=== PATIENT | female | born 1935 | race Caucasian/White ===

== ENCOUNTER 2017-07-14 11:00 | Emergency (ER) | payer OTHER ==
[~2017-07-14] VITALS: Ht 154.9 cm; Wt 59.7 kg
[~2017-07-14 11:00] MED LIST: ACET-1256 PO; AMR2 PO; ASPEC81 PO; ATOR10TA88 PO; GABA600T PO; GEMF600T3 PO; GLC500 PO; IMD/2 PO; LOSA100T26 PO; MULT-506 PO; PRLSR20 PO; PSYL0.524 PO; RXC5 PO
[2017-07-14 11:12] VITALS: TEMP 36.8; Ht 154.9 cm; Wt 59.7 kg
[2017-07-14] MEDS ORDERED: SODIUM CHLORIDE 0.9% 1000ML 1,000 ML IV STA (11:44)
[2017-07-14 11:57] LABS: BASO % 0.5 %; BASO ABS # 0.04 K/uL (0-0.2); COMPLETE YES; EOS % 5.6 %; HEMATOCRIT 34.2 % (37-47); IG% 0.5 %; LYMPH % 29.1 %; LYMPH ABS # 2.37 K/uL (1.2-3.4); MEAN CELL VOLUME 86.8 fL (80-100); MEAN CORPUSCULAR HEMOGLOBIN 28.7 pg (25-34); MONO % 5.5 %; NEUT % 58.8 %; PLATELET COUNT 410 K/uL (130-400); RED BLOOD COUNT 3.94 M/uL (4.2-5.4); WHITE BLOOD COUNT 8.15 K/uL (4.8-10.8)
[2017-07-14 12:19] LABS: ALT/SGPT 21 U/L (12-78); BLOOD UREA NITROGEN 21 mg/dl (7-18); BUN/CREATININE RATIO 24.4 (10-20); CALCIUM 9.6 mg/dl (8.5-10.1); CARBON DIOXIDE 27 mmol/L (21-32); CHLORIDE 102 mmol/L (98-107); CREATININE 0.87 mg/dl (0.60-1.20); GLUCOSE 159 mg/dl (70-99); POTASSIUM 4.3 mmol/L (3.5-5.1); SODIUM 137 mmol/L (136-145)
[2017-07-14 12:22] LABS: ALKALINE PHOSPHATASE 68 U/L (45-117); AST/SGOT 24 U/L (15-37)
[2017-07-14 12:23] LABS: URINE APPEARANCE CLEAR (CLEAR); URINE BILIRUBIN NEG (NEG); URINE COLOR YELLOW; URINE EPITHELIAL CELL AUTO 20-30 /lpf (0-5); URINE NITRITE NEG (NEG); URINE PH 6.5 (4.5-7.5); URINE SPECIFIC GRAVITY 1.017 (1.000-1.030); UROBILINOGEN NEG (NEG)
[2017-07-14] MEDS ORDERED: ASPI81TA28 PO (12:51)
[2017-07-14] MEDS ORDERED: METF-384 PO (12:51)
[2017-07-14] MEDS ORDERED: GLIM1TAB PO (12:51)
[2017-07-14 12:54] LABS: MANUAL MICROSCOPIC REQUIRED? NO; REVIEW REQ? NO
[2017-07-14] MEDS ORDERED: ONDANSETRON INJ 2 MG/ML 2 ML VIAL IV STA (13:57)
--- NOTE | 2017-07-14 14:06 | DIAGNOSTIC IMAGING REPORT ---
ABDOMEN 2VIEW W/PA CHEST RTN CLINICAL HISTORY: Abdominal pain, nausea, vomiting, diarrhea COMPARISON STUDY: Chest x-ray dated 08/08/2016 FINDINGS: The heart is normal in size. There is no failure. There is no focal pulmonary consolidation. There are no pleural effusions. There is no pneumomediastinum. There are postsurgical changes of thoracoabdominal spinal rodding. There are bilateral sacroiliac bolts. There are no abnormally dilated loops of large or small bowel. There are no transition zones indicate bowel obstruction. Multiple pelvic basin calcifications likely represent phleboliths. IMPRESSION: No evidence of bowel obstruction. No evidence of free air. Electronically signed by: Harpreet Preston M.D. 07/14/2017 2:05 PM Dictated Date/Time: 07/14/2017 2:04 PM
[2017-07-14 14:16] VITALS: BP 160/81; PULSE 85; O2SAT 96
--- NOTE | 2017-07-14 15:06 | EMERGENCY ROOM VISIT NOTE ---
ED Visit Note First contact with patient: 11:30 The patient was seen and examined with Alonzo Sheridan PA-C. I agree with the history, physical and findings. Please see the note for disposition and details.
--- NOTE | 2017-07-15 11:40 | EMERGENCY ROOM VISIT NOTE ---
ED Visit Note First contact with patient: 11:30 Chief Complaint: I've been having a lot of of diarrhea. History of Present Illness: Ms. Olivier is an 81-year-old white female who ambulates into the ED accompanied by her daughter and complaining of diarrhea. Historically patient reports she's had multiple previous episodes of diarrhea and has seen a computerized machine fabric cutter who has prescribed Imodium and this has been controlling her diarrhea for many years. Patient reports she started having an upper respiratory tract infection approximately 2 weeks ago. On Saturday she was seen at her primary care providers and was prescribed amoxicillin for her symptoms. Patient reports she took one dose and then starting on Saturday, 5 days ago, she started having diarrhea. She reports she's been having 5-6 episodes of watery stools that has a small amount of formed stool. She has used her Imodium without relief of her diarrhea. Associated with her diarrhea she reports she has some mild cramping pain before she has the episode of diarrhea that resolves when she is done and some mild lightheadedness; she does report this lightheadedness has been ongoing since her back surgery and does not feel it is anymore intense since the diarrhea started. She has stopped the antibiotic 2 days ago but continues to have the diarrhea. She has not identified any aggravating or alleviating factors related to the diarrhea. She has tried additional episodes Imodium without relief of her diarrhea. She denies chest pain, shortness of breath, fevers, chills, skin eruptions, skin color changes, abdominal pain, nausea, vomiting, bloody stools, black/ tarry stools, back/flank pain, urinary symptoms, hematuria, and recent foreign travel. Review of Systems: As noted above in history of present illness. All body systems were reviewed and found to be negative as noted above. Past Medical History: Diabetes, hypertension, GERD, unspecified back surgery, endarterectomy, cholecystectomy, unspecified knee replacement and hysterectomy. Current Medications: Prilosec, vitamins, Lopid, Neurontin, Metamucil, Tylenol, Lipitor, Imodium, Hyzaar, Glucophage, aspirin, Amaryl. Allergies to Medications: Diazepam, propoxyphene, meperidine. Social History: Patient is not employed; she lives with her and feels safe in her home environment; she denies tobacco and alcohol use. Physical Examination: Vital Signs: Date Time Temp Pulse Resp B/P (MAP) Pulse Ox O2 Delivery O2 Flow Rate FiO2 07/14/17 14:16 85 18 160/81 96 Room Air 07/14/17 13:14 74 18 142/86 96 Room Air 07/14/17 12:20 76 07/14/17 11:55 81 163/84 164/75 147/68 07/14/17 11:12 36.8 77 20 145/84 96 Room Air GENERAL: 81-year-old female in mild distress due to symptoms, nontoxic-appearing , afebrile and hemodynamically stable. NEUROLOGICAL: Awake, alert and oriented to person, place and time. Answering questions appropriately and following commands. Normal gait. Good hand eye coordination. SKIN: Warm, dry and pink. No soft tissue eruptions or trauma noted. HEENT: Atraumatic and normocephalic. PERRLA. Sclera white and conjunctiva pink. No drainage from naris. Oral cavity moist and pink. Pharynx is nonerythematous or edematous. Speech normal. No lymphadenopathy. Trachea midline. No jugular venous distention. BACK: No tenderness over the bony spine. No CVA tenderness. THORAX: Lungs sounds are clear to auscultation and equal bilaterally with symmetrical chest wall. No wheezing, rales or rhonchi. No crepitus, tenderness , subcutaneous air or deformities noted. HEART: Regular rate and rhythm. No gallops, rubs or murmurs are appreciated. ABDOMEN: Flat, soft and nontender. Positive bowel sounds in all quadrants. No guarding, rigidity or organomegaly. EXTREMITIES: Moves all extremities well on command and with purpose. All distal neurovascular statuses are intact and equal bilaterally. No calf tenderness or cords. ED Course: Patient is assessed as noted above. Patient's medication list was reviewed. Laboratory Testing: Test 07/14/17 11:45 07/14/17 12:00 Range/Units White Blood Count 8.15 4.8-10.8 K/uL Red Blood Count 3.94 4.2-5.4 M/uL Hemoglobin 11.3 12.0-16.0 g/dL Hematocrit 34.2 37-47 % Mean Corpuscular Volume 86.8 80-100 fL Mean Corpuscular Hemoglobin 28.7 25-34 pg Mean Corpuscular Hemoglobin Concent 33.0 32-36 g/dl Platelet Count 410 130-400 K/uL Mean Platelet Volume 9.0 7.4-10.4 fL Neutrophils (%) (Auto) 58.8 % Lymphocytes (%) (Auto) 29.1 % Monocytes (%) (Auto) 5.5 % Eosinophils (%) (Auto) 5.6 % Basophils (%) (Auto) 0.5 % Neutrophils # (Auto) 4.79 1.4-6.5 K/uL Lymphocytes # (Auto) 2.37 1.2-3.4 K/uL Monocytes # (Auto) 0.45 0.11-0.59 K/uL Eosinophils # (Auto) 0.46 0-0.5 K/uL Basophils # (Auto) 0.04 0-0.2 K/uL RDW Standard Deviation 39.7 36.4-46.3 fL RDW Coefficient of Variation 12.5 11.5-14.5 % Immature Granulocyte % (Auto) 0.5 % Immature Granulocyte # (Auto) 0.04 0.00-0.02 K/uL Sodium Level 137 136-145 mmol/L Potassium Level 4.3 3.5-5.1 mmol/L Chloride Level 102 98-107 mmol/L Carbon Dioxide Level 27 21-32 mmol/L Anion Gap 8.0 3-11 mmol/L Blood Urea Nitrogen 21 7-18 mg/dl Creatinine 0.87 0.60-1.20 mg/dl Est Creatinine Clear Calc Drug Dose 41.3 ml/min Estimated GFR () 71.9 Estimated GFR (Non- 62.0 BUN/Creatinine Ratio 24.4 10-20 Random Glucose 159 70-99 mg/dl Calcium Level 9.6 8.5-10.1 mg/dl Total Bilirubin 0.2 0.2-1 mg/dl Direct Bilirubin < 0.1 0-0.2 mg/dl Aspartate Amino Transf (AST/SGOT) 24 15-37 U/L Alanine Aminotransferase (ALT/SGPT) 21 12-78 U/L Alkaline Phosphatase 68 45-117 U/L Total Protein 7.8 6.4-8.2 gm/dl Albumin 3.6 3.4-5.0 gm/dl Lipase 129 73-393 U/L Urine Color YELLOW Urine Appearance CLEAR CLEAR Urine pH 6.5 4.5-7.5 Urine Specific [place] 1.017 1.000-1.030 Urine Protein NEG NEG Urine Glucose (UA) NEG NEG Urine Ketones NEG NEG Urine Occult Blood NEG NEG Urine Nitrite NEG NEG Urine Bilirubin NEG NEG Urine Urobilinogen NEG NEG Urine Leukocyte Esterase MODERATE NEG Urine WBC (Auto) 5-10 0-5 /hpf Urine RBC (Auto) 0-4 0-4 /hpf Urine Hyaline Casts (Auto) 0 0-5 /lpf Urine Epithelial Cells (Auto) 20-30 0-5 /lpf Urine Bacteria (Auto) NEG NEG Patient was unable to give a stool sample in emergency department for testing. Acute abdominal series: Was read by myself and the radiologist showing no acute infiltrates, effusions or pneumothorax. Normal heart silhouette and bony anatomy. Abdominal component shows postsurgical changes due to spinal rodding and bilateral sacroiliac bolts. No abnormal dilatation loops of bowel. Radiologist notes no transition knowns indicating bowel obstruction. There is no free air. Patient was hydrated with normal saline and she received 4 mg of Zofran IV after she came back from x-ray she reported that she was feeling nauseated. Patient was reassessed multiple times during her stay in the emergency department. Patient's case was reviewed with ; we agreed on diagnostic approach , treatment, disposition and plan. Patient was educated about today's findings and instructed on her treatment plan ; she verbalized understanding and agreement with this plan. Clinical Impression: Diarrheal illness. Decision-Making: Initially my differential diagnosis I considered bowel obstruction, C. difficile, viral an infected diarrhea and other causes. Disposition: Patient discharged home in stable condition accompanied by her ; prior to departure she was reassessed and subjectively reported that she was pain and symptom-free. She also reported shed resolution of her nausea. Plan: Patient was given a prescription and collection equipment to collect a stool sample and instructed on use. Patient was encouraged to continue her medications as prescribed including her antidiarrheal medication. Patient was encouraged to use 650 mg of acetaminophen for cramping. Patient was encouraged to contact her family doctor for follow-up care and treatment. Patient was encouraged to continue not to use her antibiotics. Patient was encouraged return to the ED for worsening diarrhea, bloody diarrhea , worsening pain, fevers or any new/concerning symptoms.
== END 2017-07-14 15:37 | disposition home or self-care (01) ==
LOC: C.EDB 11:01 → C.EDC 15:37
DX: R19.7 Diarrhea, unspecified (principal); E11.9 Type 2 diabetes mellitus without complications; I10 Essential (primary) hypertension; K21.9 Gastro-esophageal reflux disease without esophagitis; Z90.49 Acquired absence of other specified parts of digestive tract; Z90.710 Acquired absence of both cervix and uterus; Z96.659 Presence of unspecified artificial knee joint; Z79.82 Long term (current) use of aspirin; Z79.899 Other long term (current) drug therapy

== ENCOUNTER → 2018-05-06 | Outpatient (CLI) | payer OTHER ==
[~2018-05-06] MED LIST changes: -AMR2 PO; -ASPEC81 PO; +ASPI81TA28 PO; +ATOR10TA82 PO; -ATOR10TA88 PO; -GEMF600T3 PO; +GEMF600T5 PO; -GLC500 PO; +GLIM1TAB PO; -LOSA100T26 PO; +LOSA100T33 PO; +METF-384 PO; -RXC5 PO
--- NOTE | 2018-05-07 05:39 | SPLIT NIGHT TECHNICIAN REPORT ---
[facility] Split Night Polysomnogram - Net Application Architect Report Study date: 05/06/2018 Referring Physician: Dr. Serina Claire Name: ALEJANDRO SARMIENTO Net Application Architect: MICHOACANO Rodriguez. Date of : 1935 Height: 82 years, Height 5' 1" Sex: Female Weight: 132 lbs Age: 82 Neck Circum:12.75inches BMI: Medications: 24.94 Januvia 100 mg, Lyrica 25mg, Lopid 800mg, Glucophage 500mg, Lipitor 10mg, Amaryl 4mg, Xanax 0.25mg, Losartan Potassium -HCTZ 100-12.5mg, Reclast 5mg/100ml, Prilosec 20mg, Imodium Patient History Study started on room air with ETCO2 monitoring in room #6. 82 yr old female here tonight for a possible split psg. She has a history of HTN,HLD,DM w/ neuropathy, GERD, anxiety, IBS and lumbar stenosis. She has difficulty falling asleep She snores and wakes up frequently to use the restroom. Her ESS=12/24. Neck circ=12.75inches Parameters Monitored NPSG: E1-M2, E2-M1, Fp1-M2, Fp2-M1, F3-M2, F4-M2, F4-M1, C3-M2, C4-M2, C4-M1, O1-M2, O2-M2, O2-M1, T3-M2, T4-M1, P3-M2, P4-M1, CHIN1, CHIN2, HR, EKG, Legs, PFLOW, SNOR, FLOW, CFLOW, Tidal Volume, THOR, ABDO, SpO2, PLTH, CPRESS, ETCO2 Wave, ETCO2, pH SLEEP SUMMARY DATA DIAGNOSTIC TREATMENT Lights Out: 10:53:56 PM 1:42:56 AM Lights On: 1:29:26 AM 5:35:26 AM Total Recording Time (TRT): 156.5 min. 232.5 min. Total Sleep Time (TST): 120.5 min. 167.5 min. NREM Time: 94.5 min. 153.0 min. REM Time: 26.0 min. 14.5 min. Sleep Period Time (SPT): 131.5 min. 224.0 min. Sleep Efficiency (SE): 77 % 72 % Sleep Latency: 24.0 min. 8.5 min. Arousal Index: 3.0 5.0 PAP Treatment Levels: 4, 5, 6 * Optimal Pressure(s) SLEEP STAGING DATA DIAGNOSTIC TREATMENT Duration (min) TST % Duration (min) TST % Stage Wake: 35.0 min. -- 65.0 min. -- WASO: 11.0 min. -- 56.5 min. -- NREM: 94.5 min. 78 % 153.0 min. 91 % Stage N1: 3.5 min. 3 % 9.0 min. 5 % Stage N2: 41.0 min. 34 % 78.0 min. 47 % Stage N3: 50.0 min. 41 % 66.0 min. 39 % REM: 26.0 min. 22 % 14.5 min. 9 % POSITIONAL DATA Event Count Index Event Count Index Supine: N/A N/A 15 5.0 Supine NREM: N/A N/A 15 5.5 Supine REM: N/A N/A 0 0 Non-Supine: 34 16.9 N/A N/A Non-Supine NREM: 4 2.5 N/A N/A Non-Supine REM: 30 69.2 N/A N/A AROUSAL SUMMARY DATA: Event Count Index Event Count Index Apnea Arousals: 0 0.0 3 1.1 Hypopnea Arousals: 0 0.0 5 1.8 Snore Arousals: 0 0.0 2 0.7 PLM Arousals: 2 1.0 0 0.0 Non-Specific Arousals: 3 1.5 1 0.4 Total Arousals: 6 3.0 14 5.0 MYOCLONUS (PLM) Event Count Index Event Count Index PLM: 50 24.9 0 0.0 PLM AROUSAL: 2 1.0 0 0.0 PLM W/O AROUSAL 50 24.9 0 0.0 PLM W/RESP EVENT 1 0.0 0 0.0 MYOCLONUS (PLM) Event Count Index Event Count Index LM: 1 10.0 31 11.1 LM AROUSAL: 1 0.5 4 1.4 LM W/O AROUSAL LM W/RESP EVENT LM NON SPECIFIC 64 31.9 22 7.9 HEART RATE DATA DIAGNOSTIC TREATMENT Sleep (bpm): 75 68 REM (bpm): 91 91 NREM (bpm): 91 92 Tachycardia Count: 0 0 Tachycardia Duration: 0.00 0 Bradycardia Count: 0 0 Bradycardia Duration: 0.00 0 DIAGNOSTIC PORTION TREATMENT PORTION RESPIRATORY DATA Event Count Index Event Count Index AHI: -- 16.9 -- 5.0 RDI: -- 16.9 -- 5 Obstructive Apnea: 0 0.0 3 1.1 Central Apnea: 0 0.0 0 0.0 Mixed Apnea: 0 0.0 0 0.0 Hypopnea: 34 16.9 11 3.9 RERA: 0 0.0 1 0.4 Total Apneas: 0 0.0 3 1.1 RESPIRATORY DATA REM NREM SLEEP REM NREM SLEEP Supine Position: Obstructive Apneas: N/A N/A N/A 0 3 3 Central Apneas: N/A N/A N/A 0 0 0 Mixed Apneas: N/A N/A N/A 0 0 0 Hypopneas: N/A N/A N/A 0 11 11 RERA N/A N/A N/A 0 1 1 Total Supine Events: N/A N/A N/A 0 15 15 Supine AHI: N/A N/A N/A 0 5.5 5.0 Supine RDI: N/A N/A N/A 0.0 5.9 5.4 REM NREM SLEEP REM NREM SLEEP Non-Supine Position: Obstructive Apneas: 0 0 0 N/A N/A N/A Central Apneas: 0 0 0 N/A N/A N/A Mixed Apneas: 0 0 0 N/A N/A N/A Hypopneas: 30 4 34 N/A N/A N/A RERA 0 0 0 N/A N/A N/A Total Supine Events: 30 4 34 N/A N/A N/A Supine AHI: 69.2 2.5 16.9 N/A N/A N/A Supine RDI: 69.2 2.5 16.9 N/A N/A N/A OXYGEN DESTAURATION DATA: Event Count Index Event Count Index REM Desaturations: 29 66.9 4 16.6 NREM Desaturations: 16 10.2 12 4.7 SNORE DATA DIAGNOSTIC TREATMENT Snore Time: 1.4 1:51:26 AM Snore TST%: 1 1 Snore Arousal Count: 0 2 Snore Arousal Index: 0.0 0.7 Desaturation Event Summary: Minimum %SpO2 Event Count Mean/Min/Max Duration(sec.) Desaturation Index % Time In Bed > 90 78 26.6 / 9.0 / 60.0 16.7 76.2 86 - 90 15 28.9 / 13.3 / 55.0 10.7 22.9 81 - 85 0 N/A 0.0 0.9 76 - 80 0 N/A 0.0 0.0 71 - 75 0 N/A 0.0 0.0 66 - 70 0 N/A 0.0 0.0 61 - 65 0 N/A 0.0 0.0 56 - 60 0 N/A 0.0 0.0 51 - 55 0 N/A 0.0 0.0 < 50 0 N/A 0.0 0.0 OXYGEN SATURATION DATA DIAGNOSTIC TREATMENT SpO2 Mean Sleep: 91 % 92 % SpO2 Mean REM: 91 % 91 % SpO2 Mean NREM: 91 % 92 % SpO2 Minimum Sleep: 80 % 87 % SpO2 Minimum REM: 80 % 88 % SpO2 Minimum NREM: 86 % 87 % Time Below 90% (TST): 29.3 2.8 Time Below 88% (TST): 4.6 0.1 Total REM NREM Awake <50% 0.0 min. 0.0 min. 0.0 min. 0.0 min. 51 - 60% 0.0 min. 0.0 min. 0.0 min. 0.0 min. 61 - 70% 0.0 min. 0.0 min. 0.0 min. 0.0 min. 71 - 80% 0.2 min. 0.2 min. 0.0 min. 0.0 min. 81 - 90% 87.4 min. 13.7 min. 49.3 min. 24.5 min. 91 - 100% 279.8 min. 26.6 min. 198.3 min. 55.0 min. Average 92 91 92 92 Minimum SpO2 80 80 86 83 Desaturation Event Index 12.2 48.9 6.8 10.8 # Desat. Events below 89% 37 17 11 9 Time(%) with Saturation below 89% 5.3 1.3 2.4 1.6 Time(min.) with Saturation below 89% 19.6 4.8 8.7 6.0 Recording Net Application Architect Comments: Mrs. [place] slept in the right and supine positions. No cardiac arrhythmia noted. PLM's were noted. No bruxism noted. Snoring was noted and scored as a 1 on a scale of 1 through 5. (0=no snoring, 5=snoring loud enough to be heard through a closed door or down the wen way) At 1:42 am she had met specific Split-Night criteria (per order) during the diagnostic portion of this study. CPAP was initiated at +4 CMH2O and up-titrated to a level of + 6 CMH2O. A small Simplus full face mask by [employer] was used during titration. She awoke to use the restroom 2 times during the night. She stated that she slept worse than when at home.. The final report will be interpreted and signed by a sleep physician. The completed physician report will then be placed in the patient medical record. Therapy Event: Therapy (cm H20) 0 4 5 6 Total Time at Pressure (min.) 155.5 16.8 53.5 162.2 TST at Pressure (min.) 120.5 8.3 50.2 109.0 # Periods 1 1 1 1 Sleep Onset (min.) 24.0 8.5 0.0 3.7 REM Onset (min.) 92.5 N/A N/A 14.7 Sleep Efficiency % 77 49 93 67 Wakefulness (%) 22.5 50.6 6.2 32.8 Wakefulness (min.) 35.0 8.5 3.3 53.2 NREM 1 (%) 2.3 3.0 2.8 4.3 NREM 1 (min.) 3.5 0.5 1.5 7.0 NREM 2 (%) 26.4 46.4 36.8 31.1 NREM 2 (min.) 41.0 7.8 19.7 50.5 NREM 3 (%) 32.2 0.0 54.2 22.8 NREM 3 (min.) 50.0 0.0 29.0 37.0 REM (%) 16.7 0.0 0.0 8.9 REM (min.) 26.0 0.0 0.0 14.5 # Arousals 6 2 8 4 Arousal Index 3.0 14.5 9.6 2.2 # Snore 49 2 22 15 Snore Index 24.4 14.5 26.3 8.3 AHI 16.9 28.9 8.4 1.7 AHI Supine N/A 28.9 8.4 1.7 AHI Non-Supine 16.9 N/A N/A N/A NREM AHI 2.5 28.9 8.4 1.9 REM AHI 69.2 N/A N/A 0.0 RDI 16.9 28.9 8.4 2.2 # Obstructive 0 1 0 2 # Central Ap 0 0 0 0 # Mixed 0 0 0 0 # Hypopneas 34 3 7 1 RERAS 0 0 0 1 Total Respiratory Events 34 4 7 4 Time Below SpO2 89.00% (min.) 13.1 0.3 0.0 0.2 Mean NREM SpO2 (%) 91 93 92 93 Mean REM SpO2 (%) 91 N/A N/A 91 Mean Sleep SpO2 (%) 91 93 92 92 Min NREM SpO2 (%) 86 87 89 89 Min REM SpO2 (%) 80 N/A N/A 88 Position Supine (min.) 0.0 8.3 50.2 109.0 Position Non-supine (min.) 120.5 0.0 0.0 0.0 LM Index Sleep 34.9 65.1 12.0 6.6 LM Index NREM 42.5 65.1 12.0 6.3 LM Index REM 6.9 N/A N/A 8.3 Mean Heart Rate (bpm) 75 66 69 67 Min Heart Rate (bpm) 69 60 64 58
--- NOTE | 2018-05-09 18:51 | POLYSOMNOGRAPH REPORT ---
CLINICAL DATA: An 82-year-old female with BMI of [address] Serina Claire for a split night study. She has snoring, frequent awakenings, and difficulty falling asleep. SLEEP ARCHITECTURE: For the diagnostic portion of the study, sleep period time was 131.5 minutes. Total sleep time was 120.5 minutes divided between 94.5 minutes of non-REM sleep and 26 minutes of REM sleep. Sleep latency was 24 minutes. Sleep efficiency was 77%. Sleep consisted of stage N1 3%, stage N2 34%, stage N3 41%, and REM 22%. For the treatment portion of the study, sleep period time was 224 minutes. Total sleep time was 167.5 minutes divided between 153 minutes of non-REM sleep and 14.5 minutes of REM sleep. Sleep latency was 8.5 minutes. Sleep efficiency was 72%. Sleep consisted of stage N1 5%, stage N2 47%, stage N3 39%, and REM 9%. AROUSAL DATA: Prior to treatment, 6 arousals were recorded for an index of 3 per hour. During treatment, 14 arousals were recorded for an index of 5 per hour. PLM DATA: Prior to treatment, 64 limb movement events during sleep were noted for an index of 31.9 per hour. During treatment, 31 limb movement events of sleep were noted for an index of 11.1 per hour. EKG: Heart rates ranged from 68-92 beats per minute. No arrhythmias were noted. RESPIRATORY DATA: Moderate sleep apnea was documented prior to treatment. The diagnostic AHI was 17. There were 34 hypopneic episodes. The AHI during treatment was 5. There were 3 obstructive apneic episodes and 11 hypopneic episodes. OXIMETRY DATA: Hypoxemia was seen prior to treatment. Oxygen daniel was 80% during REM prior to treatment. Mean saturation with treatment was 92%. LOG OPERATIONS COORDINATOR'S NOTE AND TREATMENT SUMMARY: The patient slept in the right, supine position. Snoring was mild, rated 1 on a scale of 1-5. At 1:42 a.m. the patient met split night criteria. A small Simplus full face mask by [employer] was used. The patient was started on CPAP and was titrated up to 6 cm of water pressure. At her final pressure setting, she slept for 109 minutes with an AHI of 1.7. IMPRESSION: Moderate sleep apnea/hypopnea with diagnostic AHI of 17 corrected with CPAP 6 cm of water pressure. RECOMMENDATIONS: The patient should be started on the above-noted treatment regimen and seen back in followup within 90 days to document efficacy and compliance. MTDD
== END | disposition home or self-care (01) ==
LOC: C.NEUR 20:00
PROVIDERS: ATTEND Student in an Organized Health Care Education/Training Program
DX: G47.33 Obstructive sleep apnea (adult) (pediatric) (principal)